=== PATIENT | female | born 1985 | race Caucasian/White ===

== ENCOUNTER → 2018-12-05 | Day surgery (SDC) | payer OTHER ==
[2018-12-02 11:43] LABS: BASOPHILS # (AUTO) 0.1 (0.0-0.1); BASOPHILS % 0.7 % (0.0-1.0); EOSINOPHILS # (AUTO) 0.5 (0.0-0.4); EOSINOPHILS % 5.7 % (0.0-6.0); HEMATOCRIT 43.4 % (34.2-44.1); HEMOGLOBIN 13.8 g/dL (12.0-16.0); LYMPHOCYTES # (AUTO) 1.9 (1.0-3.2); LYMPHOCYTES % 23.2 % (18.0-39.1); MEAN CORPUSCULAR HEMOGLOBIN 29.4 pg (28-32); MEAN CORPUSCULAR HGB CONC 31.8 g/dL (31-35); MEAN CORPUSCULAR VOLUME 92.5 fL (81-99); MONOCYTES # (AUTO) 0.5 (0.2-0.8); MONOCYTES % 5.8 % (4.4-11.3); NEUTROPHILS # (AUTO) 5.2 (2.1-6.9); NEUTROPHILS % 64.4 % (38.7-80.0); PLATELET COUNT 226 x10e3/uL (140-360); RED BLOOD COUNT 4.69 x10e6/uL (3.6-5.1); RED CELL DISTRIBUTION WIDTH 14.6 % (11.7-14.4)
[~2018-12-05] MED LIST: BUPIVACAINE 0.25%/EPI 30ML SDV INJ ONE; DEXAMETHASONE SOD PHOS INJ 4 MG/ML VIAL ONE; FENTANYL CITRATE/PF 100MCG/2 ML INJ ONE; GLYCOPYRROLATE INJ 1MG/ 5 ML SYR ONE; KETOROLAC TROMETHAMINE 30 MG/ML VIAL ONE; LIDOCAINE HCL 2% LOCAL INJ 5 ML SDV VIAL INJ ONE; MIDAZOLAM HCL 2 MG/2 ML VIAL ONE; NEOSTIGMINE 5 MG/5ML SYR ONE; ONDANSETRON HCL INJ 2MG/ML 2ML 2 MG/ML VIAL ONE; PROPOFOL IV EMULSION 10 MG/ML 20 ML VIAL ONE; ROCURONIUM BROMIDE 10 MG/ML 5ML VIAL ONE; SEVOFLURANE INHAL SOLN 250 ML PEN BTL ONE
--- OUTSIDE RECORDS SUMMARY | 2018-12-05 10:35 | XMS REPORT ---
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 Allergies, Adverse Reactions, Alerts Allergy Name Allergy Type Status Severity Reaction(s) Onset Date Inactive Date Treating Clinician Comments No Known Drug Intolerances DA Active U 2018-01-19 00:00:00 No Known Drug Intolerances DA Active U 2007-01-10 00:00:00 No Known Contrast Allergies DA Active U 2007-01-10 00:00:00 No Known Drug Allergies DA Active U 2007-01-10 00:00:00 No Known Food Allergies DA Active U 2007-01-10 00:00:00 No Known Other Allergies DA Active U 2007-01-10 00:00:00 Medications This patient has no known medications.
[2018-12-05 14:30] VITALS: BP 119/60
--- NOTE | 2018-12-05 20:50 | Operative Report ---
DATE OF PROCEDURE: 12/05/2018 SURGEON: Hortencia Rollins MD PREOPERATIVE DIAGNOSIS: Requesting sterilization. POSTOPERATIVE DIAGNOSIS: Requesting sterilization. PROCEDURE PERFORMED: Laparoscopic bilateral tubal ligation. COMPLICATIONS: None. ESTIMATED BLOOD LOSS: Minimal. DESCRIPTION OF PROCEDURE: The patient was taken to the OR. She was prepped and draped in a normal sterile fashion, placed in dorsal lithotomy position. A Hulka self-retaining uterine manipulator was passed through the uterine cavity. Gloves were changed and two Allis clamps applied on the umbilicus to dwight the umbilicus. An infraumbilical skin incision was made with a scalpel, taken all the way down to the fascia, and 5 mm bladeless trocar and cannula were passed through the abdominal wall into the abdominal cavity under direct visualization. Trocar was removed and scope was passed through the sleeve into the abdominal cavity. The abdomen was insufflated with carbon dioxide gas and the patient was placed in Trendelenburg position. Another port was made in the right lower quadrant after making an 8 mm skin incision with a scalpel, and 8 mm bladeless trocar and camera were passed through the abdominal wall into the abdominal cavity under direct visualization. The patient was placed in Trendelenburg position. Good visualization of the pelvis showed normal uterus, tubes, and ovaries. Filshie clips were applied on each of the fallopian tube through the introduction of Filshie clip applicator. The upper abdomen was grossly normal. The patient tolerated the procedure well. The abdomen was deflated. The patient tolerated the procedure well. Lap, instrument and needle counts were correct x2 at the end of the procedure. Hortencia Rollins MD DD/MODL /[id number]
== END | disposition home or self-care (01) ==
LOC: OR 10:30
PROVIDERS: ATTEND Obstetrics & Gynecology
DX: Z30.2 Encounter for sterilization (principal); J45.909 Unspecified asthma, uncomplicated; I10 Essential (primary) hypertension; F17.210 Nicotine dependence, cigarettes, uncomplicated
CPT/HCPCS: 36415; 58671; 84702; 85025; J1100; J1885; J2001; J2250; J2405; J2704; J3010; J3490